=== PATIENT | female | born 2000 | race Caucasian/White ===

== ENCOUNTER 2022-03-25 14:14 | Inpatient (IN) | payer MEDICAID, OTHER ==
[~2022-03-25] VITALS: Ht 162.6 cm; Wt 90.6 kg
[2022-03-25] VITALS (16 sets, daily range): BP systolic 97–132; BP diastolic 57–93
[2022-03-25 14:45] LABS: BILIRUBIN,URINE NEGATIVE (NEGATIVE); CLARITY,URINE CLEAR; COLOR,URINE YELLOW; GLUCOSE, URINE (UA) NEGATIVE (NEGATIVE); KETONES,URINE NEGATIVE (NEGATIVE); LEUKOCYTE ESTERASE ,URINE TRACE (NEGATIVE); NITRITE,URINE NEGATIVE (NEGATIVE); PH,URINE 7.5 (5-9); PROTEIN,URINE NEGATIVE (NEGATIVE)
[2022-03-25 14:52] LABS: BACTERIA,URINE NEGATIVE /HPF; SQUAMOUS EPITHELIAL CELL,UR RARE /HPF
[2022-03-25] MEDS: LACTATED RINGERS 1,000 ML IV SCH ×2 (15:36→16:59)
[2022-03-25] MEDS ORDERED: AMPICILLIN 2,000 MG/14.8 ML (IV USE) ONE (20:41)
[2022-03-25] MEDS ORDERED: LIDOCAINE/EPI 2% 1:200,00 (XYLOCAINE) 10 ML VIAL ONE (20:41)
[2022-03-25] MEDS ORDERED: fentaNYL 2 mcg/ml BUPIVA 0.125 100 ML ONE (20:41)
[2022-03-25] MEDS ORDERED: NS (IVPB) 50 ML ONE (20:42)
[2022-03-25 21:15] LABS: BASOPHILS % (AUTO) 0 % (0-10); EOSINOPHILS % (AUTO) 0 % (0-10); HEMATOCRIT 33 % (35-52); LYMPHOCYTES # (AUTO) 2.6 10^3/uL (1.0-4.0); LYMPHOCYTES % (AUTO) 13 % (12-44); MEAN CORPUSCULAR HEMOGLOBIN 29 pg (25-34); MEAN CORPUSCULAR HGB CONC 34 g/dL (32-36); MEAN CORPUSCULAR VOLUME 88 fL (80-99); MEAN PLATELET VOLUME 10.9 fL (9.0-12.2); MONOCYTES # (AUTO) 1.4 10^3/uL (0.0-1.0); MONOCYTES % (AUTO) 7 % (0-12); NEUTROPHILS # (AUTO) 15.2 10^3/uL (1.8-7.8); NEUTROPHILS % (AUTO) 79 % (42-75); PLATELET COUNT 266 10^3/uL (130-400); WHITE BLOOD COUNT 19.3 10^3/uL (4.3-11.0)
[2022-03-25] MEDS ORDERED: MINERAL OIL 30 ML TOP PRN (21:15)
[2022-03-25] MEDS ORDERED: AMPICILLIN FOR IV USE 2,000 MG in NS (IVPB) 50 ML IV SCH (21:23)
[2022-03-25] MEDS ORDERED: NALOXONE 0.4 MG/ML 1 ML (NARCAN) VIAL IV PRN ×2 (21:30→22:30)
[2022-03-25] MEDS ORDERED: LACTATED RINGERS 1,000 ML IV ONE (21:30)
[2022-03-25] MEDS ORDERED: CATHETER FLUSH 10 ML SYR IV PRN (21:30)
[2022-03-25 22:15] LABS: BAND NEUTROPHILS 1 %; LYMPHOCYTES % (MANUAL) 17 %; MONOCYTES % (MANUAL) 11 %; NEUTROPHILS % (MANUAL) 71 %; RBC MORPH NORMAL
[2022-03-25] MEDS: D5 LR IV SOLUTION 1,000 ML IV SCH (22:20)
[2022-03-25] MEDS ORDERED: BUPIVACAINE 0.25% 10 ML (SENSORCAINE) VIAL ONE (22:21)
[2022-03-25] MEDS ORDERED: fentaNYL INJ 100 MCG/2 ML AMP ONE (22:21)
[2022-03-25] MEDS ORDERED: LACTATED RINGERS 1,000 ML IV SCH (22:30)
[2022-03-25] MEDS ORDERED: ONDANSETRON 4 MG/2 ML (SDV) Z0FRAN IV PRN (22:30)
[2022-03-25] MEDS ORDERED: EPIDURAL (fentaNYL 2 MCG/ML BUPIVA 0.125%)100 ML BAG EPI PRN (22:30)
[2022-03-25] MEDS ORDERED: diphenhydrAMINE 50 MG/ML INJ (BENADRYL) IV PRN (22:30)
[2022-03-25] MEDS: fentaNYL 2 mcg/ml BUPIVA 0.125 100 ML IV SCH (22:45)
[2022-03-26] VITALS (50 sets, daily range): BP systolic 99–142; BP diastolic 54–91
[2022-03-26] MEDS: AMPICILLIN FOR IV USE 1,000 MG in NS (IVPB) 50 ML IV SCH ×2 (00:17→05:30)
--- NOTE | 2022-03-26 00:32 | History & Physical-OB ---
OB - Chief Complaint & HPI Date/Time Date of Admission: Date of Admission: March 25, 2022 at 20:35 Date seen by a Provider: March 25, 2022 Time Seen by a Provider: 20:30 Chief Complaint/History OB-Reason for Admission/Chief: Onset of Labor Hx : 1 Hx Para: 0 Expected Date of Delivery: Mar 28, 2022 Gestational Age in Weeks: 39 Gestational Age in Days: 4 Allergies and Home Medications Allergies Coded Allergies: No Known Drug Allergies (Unverified , 03/25/22) Patient Home Medication List Home Medication List Reviewed: Yes OB - History Hx of Present Care: Yes Ultrasounds: Normal mid trimester US Obstetrical Complications: None Medical Complications: None Information Induced Hypertension: No Maternal Gestational Diabetes: No Hemorrhage: No Obstetrical History Hx : 1 Hx Para: 0 Patient Past Medical History Asthma Social History/Family History Alcohol Use: Denies Use Recreational Drug Use: No 2nd Hand Smoke Exposure: No Immunizations Tetanus Booster (TDap): Less than 5yrs Rubella: immune RPR/VDRL: Negative GBS Status: Positive HBsAG: Negative OB - Admission Exam Physical Exam Vitals: Vital Signs 03/25/22 03/26/22 23:30 00:15 Temp 36.8 Pulse 117 Resp 18 B/P (MAP) 99/54 (69) Pulse Ox 99 O2 Delivery Room Air Abdomen: Gravid Cervical Dilatation: 3cm (on admission; progressed to 6-7cm spontaneously) Membranes: Ruptured (AROM) Amniotic Fluid: Thin Meconium Heart Rate: 140's Accelerations: Accelerations Present Decelerations: No Decelerations Short Term Variability: Present Contractions on Admission: < 5 Minutes Apart Intensity: Moderate Labs Laboratory Tests Test 03/25/22 14:30 03/25/22 20:55 Range/Units Urine Color YELLOW Urine Clarity CLEAR Urine pH 7.5 5-9 Urine Specific [place] 1.010 L 1.016-1.022 Urine Protein NEGATIVE NEGATIVE Urine Glucose (UA) NEGATIVE NEGATIVE Urine Ketones NEGATIVE NEGATIVE Urine Nitrite NEGATIVE NEGATIVE Urine Bilirubin NEGATIVE NEGATIVE Urine Urobilinogen 1.0 < = 1.0 MG/DL Urine Leukocyte Esterase TRACE H NEGATIVE Urine RBC (Auto) TRACE-I H NEGATIVE Urine RBC NONE /HPF Urine WBC 2-5 /HPF Urine Squamous Epithelial Cells RARE /HPF Urine Crystals NONE /LPF Urine Bacteria NEGATIVE /HPF Urine Casts NONE /LPF Urine Mucus NEGATIVE /LPF Urine Culture Indicated NO White Blood Count 19.3 H 4.3-11.0 10^3/uL Red Blood Count 3.74 L 3.80-5.11 10^6/uL Hemoglobin 11.0 L 11.5-16.0 g/dL Hematocrit 33 L 35-52 % Mean Corpuscular Volume 88 80-99 fL Mean Corpuscular Hemoglobin 29 25-34 pg Mean Corpuscular Hemoglobin Concent 34 32-36 g/dL Red Cell Distribution Width 14.0 10.0-14.5 % Platelet Count 266 130-400 10^3/uL Mean Platelet Volume 10.9 9.0-12.2 fL Immature Granulocyte % (Auto) 1 % Neutrophils (%) (Auto) 79 H 42-75 % Lymphocytes (%) (Auto) 13 12-44 % Monocytes (%) (Auto) 7 0-12 % Eosinophils (%) (Auto) 0 0-10 % Basophils (%) (Auto) 0 0-10 % Neutrophils # (Auto) 15.2 H 1.8-7.8 10^3/uL Lymphocytes # (Auto) 2.6 1.0-4.0 10^3/uL Monocytes # (Auto) 1.4 H 0.0-1.0 10^3/uL Eosinophils # (Auto) 0.0 0.0-0.3 10^3/uL Basophils # (Auto) 0.0 0.0-0.1 10^3/uL Immature Granulocyte # (Auto) 0.1 0.0-0.1 10^3/uL Neutrophils % (Manual) 71 % Lymphocytes % (Manual) 17 % Monocytes % (Manual) 11 % Band Neutrophils 1 % Blood Morphology Comment NORMAL OB - Assessment/Plan/Diagnosis Assessment Assessment: active labor, group B positive strep Admission Dx G1 @39w4d with spontaneous labor GBS+ Admission Status: Inpatient Order (span 2 midnights) Reason for Inpatient Admission: labor and deliery Plan Plan: Expectant Management Induction Method: AROM Other Plan Ampicillin for GBS TREVA CORDOBA DO March 26, 2022 00:32
[2022-03-26] MEDS ORDERED: OXYTOCIN PRE-MIX DRIP 500 ML IV ONE ×3 (05:24→11:45)
[2022-03-26] MEDS: fentaNYL 2 mcg/ml BUPIVA 0.125 100 ML IV SCH (05:45)
[2022-03-26] MEDS ORDERED: fentaNYL 2 mcg/ml BUPIVA 0.125 100 ML ONE (05:52)
[2022-03-26] MEDS ORDERED: OXYTOCIN PRE-MIX DRIP 500 ML IV SCH (06:15)
[2022-03-26] MEDS: D5 LR IV SOLUTION 1,000 ML IV SCH (07:21)
[2022-03-26] MEDS ORDERED: CITRIC ACID/SOB CIT (BICITRA) 30 ML UDC PO ONE (08:30)
[2022-03-26] MEDS ORDERED: METOCLOPRAMIDE INJ 10 MG/2 ML (REGLAN) IV ONE (08:30)
[2022-03-26] MEDS ORDERED: FAMOTIDINE 20MG/2ML IV (PEPCID) IV ONE (08:30)
[2022-03-26] MEDS ORDERED: LACTATED RINGERS 1,000 ML IV PRN ×2 (08:30)
[2022-03-26] MEDS ORDERED: CATHETER FLUSH 10 ML SYR IV PRN (08:30)
--- NOTE | 2022-03-26 09:32 | Labor Progress Note ---
Labor Progress Note Labor Progress Note Date Seen by Provider: March 26, 2022 Time Seen by Provider: 09:28 Subjective: Pt denies complaints. Objective: Cervical exam: 6-7cm no significant change Consistency: soft Position: -2 Presentation: vertex heart tones: 150 beats per minute, normal variability, reactive Tocometer: ctx q2-3 min Assessment/Plan: Helga Borden is a (21 /Para 1 / 0,Gestational Age (wks)39 here for spontaneous labor. ROM at 2034 on 03/25/22 at 6-7cm. No signficant change, Pitocin augmentation started this am at 0530. Cervix has thinned some but no further dilation or head decent. Discussed risk vs benefit of expectant management and c- section. Recommend due to arrested labor/ decent and prolong ROM. Patient agreeable to . Dr. Bynre consulted. Vitals - Labs Vital Signs - I&O Vital Signs Date Time Temp Pulse Resp B/P (MAP) Pulse Ox O2 Delivery O2 Flow Rate FiO2 03/26/22 08:15 37.7 87 18 127/77 (94) 100 Room Air 03/26/22 08:00 83 18 123/86 (98) 100 Room Air 03/26/22 07:45 83 18 122/87 (99) 99 Room Air 03/26/22 07:30 88 18 116/84 (95) 99 Room Air 03/26/22 07:15 37.7 90 18 112/83 (93) 98 Room Air 03/26/22 07:00 37.0 98 18 123/74 (90) 98 Room Air 03/26/22 06:45 83 18 117/76 (90) 99 Room Air 03/26/22 06:30 83 18 117/76 (90) 99 Room Air 03/26/22 06:15 90 18 116/72 (87) 99 Room Air 03/26/22 06:00 85 18 132/78 (96) 98 Room Air 03/26/22 05:45 88 18 131/80 (97) 99 Room Air 03/26/22 05:30 99 18 118/72 (87) 100 Room Air 03/26/22 05:15 86 18 126/78 (94) 100 Room Air 03/26/22 05:00 36.8 89 18 122/79 (93) 100 Room Air 03/26/22 04:45 93 18 112/77 (89) 99 Room Air 03/26/22 04:30 83 18 111/72 (85) 96 Room Air 03/26/22 03:45 82 18 111/58 (75) 98 Room Air 03/26/22 03:30 82 18 111/58 (75) 98 Room Air 03/26/22 03:15 85 18 109/63 (78) 98 Room Air 03/26/22 03:00 85 18 110/66 (81) 96 Room Air 03/26/22 02:45 36.7 95 18 112/60 (77) 98 Room Air 03/26/22 02:30 85 18 112/66 (81) 96 Room Air 03/26/22 02:15 87 18 110/66 (81) 95 Room Air 03/26/22 02:00 96 18 118/59 (78) 97 Room Air 03/26/22 01:45 97 18 110/60 (77) 95 Room Air 03/26/22 01:30 107 18 113/64 (80) 97 Room Air 03/26/22 01:15 102 18 117/63 (81) 97 Room Air 03/26/22 01:00 87 18 115/66 (82) 98 Room Air 03/26/22 00:45 102 18 104/66 (79) 99 Room Air 03/26/22 00:30 106 18 106/62 (77) 98 Room Air 03/26/22 00:15 117 18 99/54 (69) 99 Room Air 03/26/22 00:00 101 18 107/65 (79) 99 Room Air 03/25/22 23:45 95 18 113/58 (76) 98 Room Air 03/25/22 23:30 36.8 85 18 122/76 (91) 99 Room Air 03/25/22 23:15 95 18 121/64 (83) 99 Room Air 03/25/22 23:10 91 18 120/66 (84) 99 Room Air 03/25/22 23:05 103 18 120/71 (87) 99 Room Air 03/25/22 23:00 106 18 119/65 (83) 96 Room Air 03/25/22 22:58 105 18 109/69 (82) 99 Room Air 03/25/22 22:55 105 18 103/65 (78) 99 Room Air 03/25/22 22:52 123 18 97/57 (70) 98 Room Air 03/25/22 22:49 105 18 111/66 (81) 98 Room Air 03/25/22 22:45 101 18 113/64 (80) 100 Room Air 03/25/22 22:00 18 Room Air 03/25/22 21:00 37.0 108 18 132/82 (99) Room Air 03/25/22 17:00 36.6 87 18 126/85 (99) Room Air 03/25/22 15:43 88 18 119/78 (92) Room Air 03/25/22 14:30 36.8 88 18 95 Room Air 03/25/22 14:28 36.8 88 18 95 Room Air I & O 03/26/22 07:00 Intake Total 1000 ml Balance 1000 ml Labs Laboratory Tests 03/25/22 14:30: Urine Color YELLOW, Urine Clarity CLEAR, Urine pH 7.5, Urine Specific [place] 1.010L, Urine Protein NEGATIVE, Urine Glucose (UA) NEGATIVE, Urine Ketones NEGATIVE, Urine Nitrite NEGATIVE, Urine Bilirubin NEGATIVE, Urine Urobilinogen 1.0, Urine Leukocyte Esterase TRACEH, Urine RBC (Auto) TRACE-IH, Urine RBC NONE, Urine WBC 2-5, Urine Squamous Epithelial Cells RARE, Urine Crystals NONE, Urine Bacteria NEGATIVE, Urine Casts NONE, Urine Mucus NEGATIVE, Urine Culture Indicated NO 03/25/22 20:55: White Blood Count 19.3H, Red Blood Count 3.74L, Hemoglobin 11.0L, Hematocrit 33L , Mean Corpuscular Volume 88, Mean Corpuscular Hemoglobin 29, Mean Corpuscular Hemoglobin Concent 34, Red Cell Distribution Width 14.0, Platelet Count 266, Mean Platelet Volume 10.9, Immature Granulocyte % (Auto) 1, Neutrophils (%) ( Auto) 79H, Lymphocytes (%) (Auto) 13, Monocytes (%) (Auto) 7, Eosinophils (%) (Auto) 0, Basophils (%) (Auto) 0, Neutrophils # (Auto) 15.2H, Lymphocytes # (Auto) 2.6, Monocytes # (Auto) 1.4H, Eosinophils # (Auto) 0.0, Basophils # (Auto) 0.0, Immature Granulocyte # (Auto) 0.1, Neutrophils % (Manual) 71, Lymphocytes % (Manual) 17, Monocytes % (Manual) 11, Band Neutrophils 1, Blood Morphology Comment NORMAL TREVA CORDOBA DO March 26, 2022 09:32
[2022-03-26] MEDS ORDERED: ceFAZolin 2 GM IV Premixed 50 ML ONE (09:38)
[2022-03-26] MEDS ORDERED: ceFAZolin 2 GM IV Premixed 50 ML IV ONE (09:45)
[2022-03-26] MEDS ORDERED: LIDOCAINE PF 2% 5 ML (XYLOCAINE) VIAL ONE ×2 (10:18→10:19)
--- NOTE | 2022-03-26 10:18 | Progress Note-Pre Operative ---
Pre-Operative Progress Note H&P Reviewed The H&P was reviewed, patient examined and no changes noted. Date Seen by Provider: March 26, 2022 Time Seen by Provider: 10:12 Date H&P Reviewed: March 26, 2022 Time H&P Reviewed: 10:13 Pre-Operative Diagnosis: 39.4 week IUP, Failure to progress, Meconium fluid. GIOVANY SINGH DO March 26, 2022 10:18
[2022-03-26] MEDS ORDERED: BUPIVACAINE 0.5% 30 ML (SENSORCAINE) VIAL ONE (10:19)
[2022-03-26] MEDS ORDERED: KETAMINE 50 MG/5 ML SYRINGE ONE (10:19)
--- NOTE | 2022-03-26 10:21 | Progress Note ---
Standard Progress Note Progress Notes/Assess & Plan Date Seen by a Provider: March 26, 2022 Time Seen by a Provider: 10:15 Progress/Assessment & Plan This patient was admitted last night as a patient of [facility], Dr. Castillo with Dr. Mccord covering for call. She has regular contractions and AROM performed last night with meconium stained fluid noted. GBS + and received antibiotics overnight and pitocin augmentation started with epidural. Patient made little to no progression in dilatation of the cervix with adequate contraction pattern overnight, followed by augmentation this AM. Due to failure to progress, arrest in dilatation PLTCS recommended by Dr. Mccord and I was consulted to perform . Risk reviewed with patient and family bedside, all questions answered. GIOVANY SINGH DO March 26, 2022 10:21
--- NOTE | 2022-03-26 10:26 | Discharge Inst-Women's Service ---
Discharge Inst-Women's Serv Depart Medication/Instructions New, Converted or Re-Newed RX: Transmitted to Pharmacy Final Diagnosis POD 2 PLTCS Problems Reviewed?: Yes Consults/Follow Up Additional Follow Up: Yes Orders/Referrals Dr. Byrne in 7-[address] Castillo in 6 weeks Activity Activity: Activity as Tolerated Driving Instructions: No Driving for 1 Week NO SMOKING: NO SMOKING Nothing Inside Vagina: No Douching, No Sedillo, No Tampons Diet Discharge Diet: No Restrictions Symptoms to Report to : Bleeding Excessive, Pain Increased, Fever Over 101 Degrees F, Vaginal Bleeding Increase, Questions/Concerns For Any Problems or Questions: Contact Your Physician Skin/Wound Care Infection Signs and Symptoms: Increased Redness, Foul Odor of Wound, Increased Drainage, Skin Itchy or Has a Rash, Increased Swelling, Temperature Above 101 F Operative Area Clean and Dry: Keep Incision Clean/Dry Stitches/Delores/Dermabond: Dermabond, Care of Stitches Bathing Instructions: ShowGIOVANY Ward DO March 26, 2022 10:26
[2022-03-26] MEDS ORDERED: MEASLES,MUMPS,RUBELLA 1 EA INJ SC SCH (10:30)
[2022-03-26] MEDS ORDERED: NALOXONE 0.4 MG/ML 1 ML (NARCAN) VIAL IV PRN (10:30)
[2022-03-26] MEDS ORDERED: ONDANSETRON 4 MG/2 ML (SDV) Z0FRAN IVP PRN (10:30)
[2022-03-26] MEDS ORDERED: TETANUS,DIPTH,PERTUSS P/F (BOOSTRIX) 0.5 ML VIAL IM SCH (10:30)
[2022-03-26] MEDS ORDERED: fentaNYL INJ 100 MCG/2 ML AMP ONE (10:44)
[2022-03-26] MEDS ORDERED: METHYLERGONOVINE 0.2 MG/ML (METHERGINE) AMP ONE (10:44)
[2022-03-26] MEDS ORDERED: CARBOPROST (HEMABATE) 250 MCG/ML AMP IM ONE (10:45)
[2022-03-26] MEDS ORDERED: SUCCINYLCHOLINE INJ 20 MG/1 ML 10 ML VIAL ONE (10:50)
[2022-03-26] MEDS ORDERED: proPOfol 200 MG/20 ML (DIPRIVAN) VIAL IV ONE (10:50)
[2022-03-26] MEDS ORDERED: ONDANSETRON 4 MG/2 ML (SDV) Z0FRAN ONE (10:51)
[2022-03-26] MEDS ORDERED: KETOROLAC 30 MG/ML VIAL ONE (10:51)
[2022-03-26] MEDS: KETOROLAC 30 MG/ML VIAL IV SCH ×3 (11:05→23:05)
[2022-03-26] MEDS: CATHETER FLUSH 10 ML SYR IV SCH ×4 (11:49→23:06)
[2022-03-26] MEDS: OXYTOCIN PRE-MIX DRIP 500 ML IV SCH ×2 (11:53→15:26)
[2022-03-26] MEDS: HYDROmorphone 2 MG/ML VIAL (DILAUDID) IV PRN ×2 (12:42→16:58)
[2022-03-26] MEDS: METOCLOPRAMIDE 10 MG (REGLAN) TAB PO SCH ×3 (13:16→23:05)
[2022-03-26] MEDS: HYDROcodone/APAP 5 MG/325 MG (LORTAB) TAB PO PRN ×2 (13:17→19:59)
[2022-03-26] MEDS ORDERED: CATHETER FLUSH 10 ML SYR IV SCH (14:00)
--- NOTE | 2022-03-26 14:21 | OPERATIVE REPORT ---
DATE OF SERVICE: PREOPERATIVE DIAGNOSES: 1. A 21-year-old G1, P0 at 39 weeks and 4 days gestation. 2. Failure to progress, arrest in dilatation and meconium stained fluid. POSTOPERATIVE DIAGNOSES: 1. A 21-year-old G1, P0 at 39 weeks and 4 days gestation. 2. Failure to progress, arrest in dilatation and meconium stained fluid. PROCEDURE: Primary low transverse section. SURGEON: Matthew Singh DO ANESTHESIA: General endotracheal. ESTIMATED BLOOD LOSS: 700 mL. URINE OUTPUT: 150 mL clear at the end of the procedure. FLUIDS: 1000 mL of lactated Ringer's solution. FINDINGS: A live female weighing 7 pounds 15 ounces, Apgars of 8 and 9. Grossly normal appearing uterus, bilateral fallopian tubes and ovaries. SPECIMEN SENT: Placenta. INDICATIONS FOR PROCEDURE: A 21-year-old female. This patient was admitted by the [facility] call group. This is a family practice call group, which covered her labor. However, she progressed to 6 cm dilatation and made no further progression. She also had meconium stained fluid and was GBS positive and was on antibiotics for GBS prophylaxis throughout the night. Due to no change in the cervix over an 8-hour period, the discussion was had by her primary care provider to provide primary services. They were agreeable, so I was contacted and consulted to the case. After reviewing the case myself, I agreed with the assessment and agreed to proceed with if the patient was willing. Risk of the procedure were discussed with the patient in detail including risk of bleeding, infection, damage to surrounding structures including, but not limited to bowel, bladder, ureter, kidneys, possible need for reoperation, postoperative complications that may occur, risk from anesthesia and even . After everything was discussed with the patient in detail and all their questions were answered with family present, consent was obtained, the patient was taken to the operating room. OPERATIVE REPORT IN DETAIL: Once in the operating room, epidural analgesia was bolused; however, found to be inadequate after further testing. Therefore, we did prep and drape the patient in the normal sterile fashion. However, due to concerns of overdosing in the spinal region anesthesia preferred to proceed with general endotracheal anesthesia. Once I was notified by anesthesia that endotracheal access and airway was secured and a timeout was performed, I proceeded with making a Pfannenstiel skin incision with a knife and carried down to underlying fascia using Bovie cautery. The fascial incision extended laterally using blunt traction, which exposed the underlying rectus muscles, which I dissected down the midline using blunt traction. I then identified the peritoneum, which I entered bluntly and extended using blunt traction and placed an Duarte ring retractor within the peritoneal incision, which offers excellent lateral sidewall retraction. I identified the lower uterine segment, which was found to be thinned out and make a low transverse incision to the vesicouterine peritoneum and bluntly dissected off the lower uterine segment, creating a bladder flap. I then proceeded with my myotomy until membranes are visualized, at which point I extended the uterine incision using both lateral and superior inferior traction. Once this was done, I found the in the vertex presentation with meconium stained fluid noted. The 's head was elevated up the incision where the nares and oropharynx were bulb suctioned. Anterior and posterior shoulders were delivered. The infant was then brought to the operative field with cord was doubly clamped and cut and was handed off to Dr. Mccord, who was present for delivery. Cord blood was collected. Three-vessel cord with intact placenta was delivered spontaneously thereafter. IV Pitocin is initiated to facilitate uterine contraction. Uterine fundus confirmed with bimanual massage with some slight uterine atony therefore I have them administer 250 mcg of Hemabate due to the patient's blood pressure being slightly elevated at the time of intubation, 150s over 90s. After closing the uterine incision using 0 Vicryl suture in a running locked fashion, I then noticed some persistent atony. Blood pressure was found to be 115/70s at that point. Therefore, I felt safe given Methergine, so 0.2 mg of Methergine was ordered and administered by anesthesia IM. I then proceeded with closing second layer of imbricating suture using 0 Monocryl in imbricating fashion running across the incision after which uterine atony is gone and there is good uterine tone and there is no active bleeding noted from any of my dissection planes. I then placed the uterus back in the pelvis and copiously irrigated the pelvis using normal saline. Once again, there was no active bleeding noted from any of my dissection planes. I placed Interceed antiadhesive over my low transverse incision. I removed the Duarte ring retractor and then proceeded with closing the peritoneum using 3-0 Vicryl suture in a running fashion. The rectus muscles were reapproximated using 3-0 Vicryl suture in interrupted fashion. The fascia was reapproximated using 0 Vicryl suture in running fashion. Subcutaneous tissue was reapproximated using 3-0 plain interrupted subcutaneous stitch and skin reapproximated using 4-0 Monocryl running subcuticular. Dermabond was applied to incision and sterile dressing was adhesed with white tape. The patient tolerated the procedure well and sent to recovery area in stable condition. Lap and sponge counts were correct at the end of the procedure. Instrument counts correct as well. Two grams of Ancef given preoperatively for infection prophylaxis. Job ID: [id number] DocumentID: [id number] Dictated Date: 03/26/2022 11:30:36 [employer] Agent Date: 03/26/2022 14:20:12 Dictated By: MATTHEW SINGH DO
[2022-03-26] MEDS: DOCUSATE SODIUM 100 MG (COLACE) CAP PO SCH (19:59)
[2022-03-27] MEDS: HYDROcodone/APAP 5 MG/325 MG (LORTAB) TAB PO PRN ×3 (01:16→16:11)
[2022-03-27 04:14] VITALS: BP 110/60
[2022-03-27] MEDS: CATHETER FLUSH 10 ML SYR IV SCH (04:14)
[2022-03-27] MEDS: METOCLOPRAMIDE 10 MG (REGLAN) TAB PO SCH ×4 (04:14→22:35)
[2022-03-27] MEDS: KETOROLAC 30 MG/ML VIAL IV SCH (04:14)
[2022-03-27 05:57] LABS: BASOPHILS % (AUTO) 0 % (0-10); EOSINOPHILS # (AUTO) 0.1 10^3/uL (0.0-0.3); EOSINOPHILS % (AUTO) 0 % (0-10); HEMATOCRIT 25 % (35-52); HEMOGLOBIN 8.4 g/dL (11.5-16.0); LYMPHOCYTES # (AUTO) 2.3 10^3/uL (1.0-4.0); LYMPHOCYTES % (AUTO) 14 % (12-44); MEAN CORPUSCULAR HEMOGLOBIN 30 pg (25-34); MEAN CORPUSCULAR HGB CONC 34 g/dL (32-36); MEAN CORPUSCULAR VOLUME 89 fL (80-99); MEAN PLATELET VOLUME 11.2 fL (9.0-12.2); MONOCYTES # (AUTO) 1.1 10^3/uL (0.0-1.0); MONOCYTES % (AUTO) 7 % (0-12); NEUTROPHILS % (AUTO) 78 % (42-75); PLATELET COUNT 204 10^3/uL (130-400); WHITE BLOOD COUNT 16.7 10^3/uL (4.3-11.0)
--- NOTE | 2022-03-27 07:55 | Anesthesia-Regional Post-Op ---
Regional Patient Condition Mental Status: Alert, Oriented x3 Circulation: Same as Pre-Op Headache: Absent Sensation: Full Recovery Motor Block: Absent Post Op Complications Complications None Follow Up Care/Instructions Patient Instructions None needed. Anesthesia/Patient Condition Patient is doing well, no complaints, stable vital signs, no apparent adverse anesthesia problems. No complications reported per nursing. ALICIA PINA CRNA March 27, 2022 07:55
--- NOTE | 2022-03-27 07:57 | Anesthesia-General Post-Op ---
General Patient Condition Mental Status/LOC: Same as Preop Cardiovascular: Satisfactory Nausea/Vomiting: Absent Respiratory: Satisfactory Pain: Controlled Complications: Absent Post Op Complications Complications None Follow Up Care/Instructions Patient Instructions None needed. Anesthesia/Patient Condition Patient Condition Patient is doing well, no complaints, stable vital signs, no apparent adverse anesthesia problems. No complications reported per nursing. ALICIA PINA CRNA March 27, 2022 07:57
[2022-03-27 08:15] VITALS: BP 116/61
[2022-03-27] MEDS: DOCUSATE SODIUM 100 MG (COLACE) CAP PO SCH ×2 (08:30→22:34)
--- NOTE | 2022-03-27 09:48 | Postpartum Progress Note ---
Note Note Day # 1 Subjective: Patient is without complaints. Ambulating, voiding. Tolerating a regular diet without nausea or vomiting. Normal lochia. Pain is well controlled with oral pain medications. Physical Exam: General - Alert and oriented, no apparent distress Abdomen - Soft, appropriately tender to palpation, non-distended, fundus firm at umbilicus; incision c/d/i Extremities - no edema, negative Derrick's bilaterally Assessment: Post- day # 1, status post PLTCS. Recovering well, hemodynamically stable Acute blood loss anemia Plan: Routine care. Encourage breast feeding. Encourage ambulation. Ferrous sulfate supplementation. Plan for discharge tomorrow Vitals - Labs Vital Signs - I&O Vital Signs Date Time Temp Pulse Resp B/P (MAP) Pulse Ox O2 Delivery O2 Flow Rate FiO2 03/27/22 08:15 36.4 82 18 116/61 (79) 98 Room Air 03/27/22 04:14 36.3 110 18 110/60 (77) 98 Room Air 03/26/22 23:06 36.9 100 18 122/80 (94) 98 Room Air 03/26/22 19:35 36.9 96 18 126/74 (91) 98 Room Air 03/26/22 14:37 36.9 75 18 118/71 (87) 96 Room Air 03/26/22 12:39 36.9 75 18 141/73 (95) 95 Nasal Cannula 1.00 03/26/22 12:15 36.9 11 134/89 (104) 97 Nasal Cannula 1 03/26/22 12:14 Nasal Cannula 1 03/26/22 12:10 21 129/88 (102) 92 Nasal Cannula 1 03/26/22 12:01 15 131/91 (104) 93 Nasal Cannula 1 03/26/22 12:00 Nasal Cannula 1 03/26/22 11:50 12 131/86 (101) 9 Nasal Cannula 1 03/26/22 11:45 Nasal Cannula 1 03/26/22 11:40 17 122/79 (93) 94 Nasal Cannula 1 03/26/22 11:30 Nasal Cannula 3 03/26/22 11:30 37 18 120/73 (89) 98 Nasal Cannula 3 03/26/22 10:17 18 117/70 (86) Room Air 03/26/22 10:00 86 18 120/68 (85) Room Air 03/26/22 09:45 86 18 125/78 (94) Room Air I & O 03/27/22 06:59 Intake Total 3400 ml Output Total 400 ml Balance 3000 ml Labs Laboratory Tests 03/27/22 05:16: White Blood Count 16.7H, Red Blood Count 2.78L, Hemoglobin 8.4#L, Hematocrit 25L , Mean Corpuscular Volume 89, Mean Corpuscular Hemoglobin 30, Mean Corpuscular Hemoglobin Concent 34, Red Cell Distribution Width 14.0, Platelet Count 204, Mean Platelet Volume 11.2, Immature Granulocyte % (Auto) 1, Neutrophils (%) (Auto) 78H, Lymphocytes (%) (Auto) 14, Monocytes (%) (Auto) 7, Eosinophils (%) (Auto) 0, Basophils (%) (Auto) 0, Neutrophils # (Auto) 13.0H, Lymphocytes # (Auto) 2.3, Monocytes # (Auto) 1.1H, Eosinophils # (Auto) 0.1, Basophils # (Auto) 0.0, Immature Granulocyte # (Auto) 0.1 FAREED GARCIA TECHNICAL EDUCATION TEACHER March 27, 2022 09:48
[2022-03-27] MEDS ORDERED: IBUPROFEN 600 MG (MOTRIN) TAB PO ONE (09:58)
[2022-03-27] MEDS ORDERED: SIMETHICONE 80 MG (MYLICON) CHEW PO PRN (10:00)
[2022-03-27] MEDS: IBUPROFEN 600 MG (MOTRIN) TAB PO SCH ×3 (10:05→22:34)
[2022-03-27] MEDS ORDERED: IBUPROFEN 600 MG (MOTRIN) TAB PO SCH (12:00)
[2022-03-27 12:30] VITALS: BP 121/69
[2022-03-27 16:15] VITALS: BP 112/60
[2022-03-27 22:35] VITALS: BP 127/85
[2022-03-28 04:53] VITALS: BP 111/76
[2022-03-28] MEDS: IBUPROFEN 600 MG (MOTRIN) TAB PO SCH ×2 (04:53→10:29)
[2022-03-28] MEDS: HYDROcodone/APAP 5 MG/325 MG (LORTAB) TAB PO PRN (04:53)
[2022-03-28] MEDS: METOCLOPRAMIDE 10 MG (REGLAN) TAB PO SCH ×2 (04:53→10:29)
[2022-03-28 08:15] VITALS: BP 108/62
[2022-03-28] MEDS: DOCUSATE SODIUM 100 MG (COLACE) CAP PO SCH (08:23)
[2022-03-28] MEDS ORDERED: IBUP-844 PO (09:56)
[2022-03-28] MEDS ORDERED: DOCU100C37 PO (09:56)
[2022-03-28] MEDS ORDERED: FERR325T18 PO (09:56)
[2022-03-28] MEDS ORDERED: ACHD5005 PO (09:56)
--- NOTE | 2022-03-28 09:59 | Postpartum Progress Note ---
Note Note Day # 2 Subjective: Patient is without complaints. Ambulating, voiding. Tolerating a regular diet without nausea or vomiting. Normal lochia. Pain is well controlled with oral pain medications. Physical Exam: General - Alert and oriented, no apparent distress Abdomen - Soft, appropriately tender to palpation, non-distended, fundus firm at umbilicus; incision c/d/i Extremities - no edema, negative Derrick's bilaterally Assessment: Post- day # 2, status post PLTCS. Recovering well, hemodynamically stable Acute blood loss anemia Plan: Routine care. Encourage breast feeding. Encourage ambulation. Ferrous sulfate supplementation. Plan for discharge today Vitals - Labs Vital Signs - I&O Vital Signs Date Time Temp Pulse Resp B/P (MAP) Pulse Ox O2 Delivery O2 Flow Rate FiO2 03/28/22 08:15 36.4 72 18 108/62 (77) 97 Room Air 03/28/22 04:53 36.6 75 18 111/76 (88) Room Air 03/27/22 22:35 36.3 100 18 127/85 (99) 97 Room Air 03/27/22 16:15 36.6 83 18 112/60 (77) 96 Room Air 03/27/22 12:30 36.4 94 18 121/69 (86) 97 Room Air I & O 03/28/22 07:00 Intake Total 800 ml Balance 800 ml FAREED GARCIA APRN Mar 28, 2022 09:59
[2022-03-28 11:40] VITALS: BP 108/62
== END 2022-03-28 11:40 | disposition home or self-care (01) | DRG 787 ==
LOC: WSo 14:14 → LDRP 14:14 → WSo 21:11 → LDRP 03-26 12:25
PROVIDERS: ADMIT Family Medicine; ATTEND Family Medicine
PROC: 10D00Z1 Extraction of Products of Conception, Low, Open Approach (ICD-10-PCS; principal; 2022-03-26 10:20)
DX: O99.824 Streptococcus B carrier state complicating childbirth (principal); D62 Acute posthemorrhagic anemia; O77.0 Labor and delivery complicated by meconium in amniotic fluid; O62.1 Secondary uterine inertia; O75.89 Other specified complications of labor and delivery; O90.81 Anemia of the puerperium; Z37.0 Single live birth; Z3A.39 39 weeks gestation of pregnancy
CPT/HCPCS: 36415; 81000; 85007; 85025; 85027; 86850; 86900; 86901; 94664; 99212